=== PATIENT | male | born 1965 | race Caucasian/White ===

== ENCOUNTER 2018-02-01 19:18 | Emergency (ER) | payer OTHER ==
[~2018-02-01] VITALS: Ht 182.9 cm; Wt 74.8 kg
[~2018-02-01 19:18] MED LIST: ACETAMINOPHEN-1 EAC1 PO; ALBUTEROL INH INH; FLEXERIL PO; HYDROCODON-ACE1 EAC7 PO; HYDROCODON-ACE1 EAC8 PO; HYDROCODONE-AP1 EAC6 PO; IBUPROFEN 800800 MG PO; LISINOPRIL20 MG PO; MOBIC7.5 M1 PO; NOHOMEMEDICATIONS; NORCO 5-325 TA1 EACH PO; PANTOPRAZOLE SO40 M1 PO; PENICILLIN VK500 MG PO; PREDNISONE 20 M20 M1 PO; PREDNISONE 20 M20 MG PO; PREDNISONE50 MG PO; ROBAXIN500 MG PO; TORADOL 10 MG T10 MG PO; TRAMADOL 50 MG50 MG PO; ULTRAM 50MG TAB50 MG PO; VISTARIL 25 MG25 M1 PO; XANAX1 MG PO
[2018-02-01 19:24] VITALS: BP 139/73
[2018-02-01] MEDS ORDERED: NORCO 5-325 TA1 EACH PO (20:18)
== END 2018-02-01 20:30 | disposition home or self-care (01) ==
LOC: M.ERS 19:18
DX: S20.211A Contusion of right front wall of thorax, initial encounter (principal); I10 Essential (primary) hypertension; J45.909 Unspecified asthma, uncomplicated; Z88.6 Allergy status to analgesic agent; V49.49XA Driver injured in collision with other motor vehicles in traffic accident, initial encounter; Y93.89 Activity, other specified; Y92.89 Other specified places as the place of occurrence of the external cause; Y99.8 Other external cause status

== ENCOUNTER 2018-06-18 18:40 | Inpatient (IN) | payer OTHER ==
[~2018-06-18] VITALS: Ht 182.9 cm; Wt 70.3 kg
[2018-06-18 18:46] VITALS: BP 101/50
[2018-06-18 19:17] LABS: ABSOLUTE LYMPHOCYTES 1.6 thou/uL (0.8-5.3); ABSOLUTE MONOCYTES 0.7 thou/uL (0.0-1.2); ABSOLUTE NEUTROPHILS 4.2 thou/uL (1.6-8.1); BASOPHILS 0.5 %; EOSINOPHILS 0.7 %; HEMATOCRIT 44.4 % (42.0-52.0); HEMOGLOBIN 14.8 gm/dL (14.0-18.0); MCH 29.2 pg (26.0-34.0); MCHC 33.3 g/dL (28.0-37.0); MCV 87.9 fL (80.0-100.0); MPV 8.5 fl. (7.2-11.1); NUCLEATED RBCS 0 /100WBC; PLATELET COUNT* 278 thou/uL (150-400); POLYS 63.8 %; RBC 5.06 mil/uL (4.50-6.00); RDW-CV 13.1 % (10.5-14.5); WBC 6.6 thou/uL (4.0-11.0)
[2018-06-18 19:24] LABS: CALCIUM 7.9 mg/dL (8.5-10.1); CREATININE 3.1 mg/dL (0.6-1.3); POTASSIUM 3.7 mmol/L (3.5-5.1)
[2018-06-18 19:29] LABS: ALBUMIN 3.4 g/dL (3.4-5.0); TOTAL BILIRUBIN 0.5 mg/dL (<0.1-1.0); TOTAL PROTEIN 6.5 g/dL (6.4-8.2)
[2018-06-18 20:34] VITALS: BP 106/67
[2018-06-18 20:55] VITALS: BP 103/70
[2018-06-18] MEDS ORDERED: LISINOPRIL20 MG PO (21:06)
[2018-06-18] MEDS ORDERED: ZOCOR20 MG PO (21:07)
[2018-06-19] VITALS (7 sets, daily range): BP systolic 90–110; BP diastolic 38–64
[2018-06-19 04:43] LABS: HEMATOCRIT 37.9 % (42.0-52.0); MCH 29.4 pg (26.0-34.0); MCHC 33.5 g/dL (28.0-37.0); MCV 87.8 fL (80.0-100.0); MPV 8.5 fl. (7.2-11.1); RBC 4.32 mil/uL (4.50-6.00); RDW-CV 13.1 % (10.5-14.5)
[2018-06-19 04:57] LABS: ALBUMIN 2.7 g/dL (3.4-5.0); CALCIUM 7.2 mg/dL (8.5-10.1); CREATININE 2.3 mg/dL (0.6-1.3); MAGNESIUM 2.5 mg/dL (1.8-2.4); POTASSIUM 3.8 mmol/L (3.5-5.1); TOTAL BILIRUBIN 0.2 mg/dL (<0.1-1.0); TOTAL PROTEIN 5.2 g/dL (6.4-8.2)
[2018-06-19 05:08] LABS: HEMOGLOBIN 12.7 gm/dL (14.0-18.0)
[2018-06-19 07:31] LABS: URINE BILIRUBIN NEGATIVE (Negative); URINE BLOOD NEGATIVE (Negative); URINE CLARITY CLEAR; URINE COLOR YELLOW; URINE GLUCOSE-RANDOM NEGATIVE (Negative); URINE KETONES NEGATIVE (Negative); URINE LEUKOCYTES-REFLEX NEGATIVE (Negative); URINE NITRITE-REFLEX NEGATIVE (Negative); URINE PROTEIN NEGATIVE (Negative); URINE UROBILINOGEN 0.2 E.U./dl (0.2-1.0)
[2018-06-19 07:48] LABS: AMP/METHAMP POSITIVE (Negative); BARBITURATES Negative (Negative); BENZODIAZEPINES POSITIVE (Negative); COCAINE Negative (Negative); METHADONE Negative (Negative); OPIATES POSITIVE (Negative); PCP Negative (Negative); THC Negative (Negative)
--- NOTE | 2018-06-19 08:18 | NUR ---
RECIEVED REPORT. ASSUMED CARE OF PT AT 0730. VSS. CARDIAC MONTIORING IN PLACE SR. AM ASSESSMENT AND VITALS COMPLETED CHARTED. PT IS SLEEPING THIS AM BUT IS ALERT AND ORIENTED. PT ON RA. IVF INFUSING PER ORDERS. PT DENIES ANY COMPLAINTS OF PAIN OR DISCOMFORT THIS AM. PT'S IV SECURED WITH TAPE THIS AM. PT HAVING RENAL US TODAY. PT'S UDS NOTED. PT INFORMED OF PLAN OF CARE. PT COMMUNICATES UNDERSTANDING. CALL LIGHT IS WITHIN REACH. WILL CONTINUE TO MONITOR FOR DURATION OF SHIFT.
--- NOTE | 2018-06-19 10:49 | NUR ---
PT NOTED TO BEIN AFIB. CONFIRMED WITH EKG. NOTIFIED DR. ROBERTS RECIEVED ORDERS FOR CARDIZEM GTT AND CARDIOLOGY CONSULT
--- NOTE | 2018-06-19 12:31 | EKG ---
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 : 1965 Requested By: Jamey Martinez Order Number: [id number] MD: Jhonatan Ireland Measurements Intervals [place] Rate: 83 P: 78 MD: 136 QRS: 45 QRSD: 101 T: 46 QT: 376 QTc: 442 Interpretive Statements Sinus rhythm Abnormal R-wave progression, early transition Compared to ECG 05/31/2016 23:25:29 early transition noted Electronically Signed On 06-19-2018 12:30:46 CDT by Jhonatan Ireland [email or web address] <ELECTRONICALLY SIGNED> By: Jhonatan Ireland MD, [facility] 06/19/18 1230 18 18 Jhonatan Ireland MD, [facility] /EPI
--- NOTE | 2018-06-19 12:41 | EKG ---
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
--- NOTE | 2018-06-19 13:23 | NUR ---
PT CONVERTED TO SR. DR. ISIDRO NOTIFIED.
--- NOTE | 2018-06-19 17:34 | NUR ---
PT PROGRESSING TOWARDS GOALS. CARDIAC MONITORING IN PLACE SR. VSS. PT REMAINS ALERT AND ORIETNED. PT REAMISN ON RA. IV SALINE LOCKED. PT'S PAIN WELL MANAGED WITH PO PAIN MEDS. PT IS UP AD RAMAN IN ROOM. PT INFORMED OF PLAN OF CARE. CALL LIGHT IS WITHIN REACH. WILL CONTINUE TO MONITOR FOR DURATION OF SHFIT.
--- NOTE | 2018-06-20 00:56 | NUR ---
ASSUMED PT CARE REPORT RECEIVED FROM NURSE. PT IS ALERT AWAKE ORIENTED X4, SINUS RYTHM ON DEVELOPER ARCHITECT. COMPLAIN OF PAIN LEVEL 7 IN BACK. PAIN MED WAS ADMINISTERED SCHEDULED. PT TOLORATED WELL. HE IS NOW SLEEPING IN BED. VTAL SIGNS WITHIN NORMAL LIMIT. WILL CONTINUE TO MONITOR.
[2018-06-20 04:00] VITALS: BP 113/63
[2018-06-20 05:06] LABS: HEMATOCRIT 38.8 % (42.0-52.0); HEMOGLOBIN 12.9 gm/dL (14.0-18.0); MCH 29.2 pg (26.0-34.0); MCHC 33.3 g/dL (28.0-37.0); MCV 87.8 fL (80.0-100.0); MPV 8.7 fl. (7.2-11.1); RBC 4.42 mil/uL (4.50-6.00); WBC 5.9 thou/uL (4.0-11.0)
[2018-06-20 05:35] LABS: ALBUMIN 2.7 g/dL (3.4-5.0); CALCIUM 8.4 mg/dL (8.5-10.1); CREATININE 1.5 mg/dL (0.6-1.3); MAGNESIUM 2.1 mg/dL (1.8-2.4); PHOSPHORUS* 1.6 mg/dL (2.5-4.9); POTASSIUM 4.4 mmol/L (3.5-5.1)
[2018-06-20 08:00] VITALS: BP 118/73
--- NOTE | 2018-06-20 09:49 | NUR ---
ASSUMED CARE OF PT AT 0730. PT RESTING IN BED WAITING FOR BREAKFAST. PT A&0X4, COMPLAINS OF PAIN TO LOWER BACK. TREATED WITH PRN PAIN MEDICATION WITH PARTIAL RELIEF. 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 ON RHYTHMOL FOR HISTORY AFIB. PT ON RA SAT UPPER 90'S. DENIES ANY SHORTNESS OF BREATH. PT UP AD RAMAN IN ROOM. PT GOAL FOR TODAY IS PAIN MGMT, MONITOR HEART RATE AND RHYTHM, INCREASE ACTIVITY AND DISCHARGE PLANNING. AM ASSESSMENT CHARTED. MEDICATIONS PER JAN. PT REPOSITIONS SELF. HOURLY ROUNDING OBSERVED. BED IN LOW POSITION. CALL LIGHT WITHIN REACH. WILL CONTINUE PLAN OF CARE.
[2018-06-20 11:06] VITALS: BP 118/73
[2018-06-20] MEDS ORDERED: RYTHMOL SR225 MG PO (11:13)
[2018-06-20] MEDS ORDERED: ASPIRIN325 PO (12:11)
[2018-06-20 13:03] VITALS: BP 120/69
--- NOTE | 2018-06-20 15:18 | 2DMMODE ---
[place] [address] 2 D/M-MODE ECHOCARDIOGRAM Name: NICOLA BRIONES Room: [address] IN .R.#: [id number] Admission: 06/18/18 Attend Phys: Edi Moreno Discharge: Date of : 69 Date of Service: 06/20/18 1518 Report #: [id number] THIS REPORT FOR: //name// APPROVED REPORT Study performed: 06/20/2018 13:16:22 EXAM: Comprehensive 2D, Doppler, and color-flow Echocardiogram Patient Location: Bedside BSA: 1.91 HR: 76 bpm BP: 114/64 mmHg Other Information Study Quality: Fair Indications Atrial Fibrillation 2D Dimensions LVEF(%): 57.24 (>50%) IVSd: 9.22 (7-11mm) LVOT Diam: 20.52 (18-24mm) LVDd: 44.94 mm PWd: 8.77 (7-11mm) Ascending Ao: 32.51 (22-36mm) LVDs: 31.50 (25-40mm) Aortic Root: 25.41 mm Dumont's LVEF: 57.24 % Volumes Left Atrial Volume (Systole) LA ESV Index: 25.00 mL/m2 Aortic Valve AoV Peak Sumeet.: 1.21 m/s AO Peak Gr.: 5.88 mmHg LVOT Max P.81 mmHg AO Mean Gr.: 3.41 mmHg LVOT Mean P.02 mmHg LVOT Max V: 0.98 m/s AO V2 VTI: 20.61 cm LVOT Mean V: 0.66 m/s MARY (VTI): 3.01 cm2 LVOT V1 VTI: 18.78 cm Mitral Valve E/A Ratio: 1.24 MV Decel. Time: 153.32 ms MV E Max Sumeet.: 0.77 m/[place] [address] 2 D/M-MODE ECHOCARDIOGRAM Name: NICOLA BRIONES Room: [address] IN [facility]#: [id number] Admission: 06/18/18 Attend Phys: Edi Moreno Discharge: Date of : 69 Date of Service: 06/20/18 1518 Report #: [id number] MV PHT: 44.46 ms MVA (PHT): 4.95 cm2 TDI E/Lateral E': 4.53 E/Medial E': 5.50 Medial E' Sumeet.: 0.14 m/s Lateral E' Sumeet.: 0.17 m/s Pulmonary Valve PV Peak Sumeet.: 1.15 m/s PV Peak Gr.: 5.28 mmHg Left Ventricle The left ventricle is normal size. Paradoxical septal motion. There is normal left ventricular wall thickness. Left ventricular systolic function is borderline. A false tendon is noted. LVEF is 50-55%. The left ventricular diastolic function is normal. Right Ventricle The right ventricle is normal size. The right ventricular systolic function is normal. Atria The left atrium size is normal. The right atrium size is normal. Aortic Valve The aortic valve is normal in structure. No aortic regurgitation is present. There is no aortic valvular stenosis. Mitral Valve The mitral valve is normal in structure. There is no mitral valve regurgitation noted. No evidence of mitral valve stenosis. Tricuspid Valve The tricuspid valve is normal in structure. There is no tricuspid valve regurgitation noted. Pulmonic Valve Pulmonic valve is not well visualized. There is no pulmonic valvular regurgitation. Great Vessels The aortic root is normal in size. IVC is not well visualized[place] [address] 2 D/M-MODE ECHOCARDIOGRAM Name: NICOLA BRIONES Room: [address] IN [facility]#: [id number] Admission: 06/18/18 Attend Phys: Edi Moreno Discharge: Date of : 69 Date of Service: 06/20/18 1518 Report #: [id number] There is no pericardial effusion. <Conclusion> LVEF is 50-55%. <ELECTRONICALLY SIGNED> By: Jhonatan Ireland MD, FACC 06/20/18 1518 1518 1518 Jhonatan Ireland MD, [facility] /INF
--- NOTE | 2018-06-20 15:25 | EKG ---
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1965 Requested By: Jhonatan Ireland Order Number: [id number] Rossy MD: Jhonatan Ireland Measurements Intervals [place] Rate: 84 P: 66 [place]: 139 QRS: 52 QRSD: 93 T: 57 QT: 367 QTc: 434 Interpretive Statements Sinus rhythm Left ventricular hypertrophy Compared to ECG 06/19/2018 10:31:16 Atrial fibrillation no longer present Electronically Signed On 06-20-2018 15:25:07 CDT by Jhonatan Ireland [email or web address] <ELECTRONICALLY SIGNED> By: Jhonatan Ireland MD, [facility] 06/20/18 1525 1331 30 Jhonatan Ireland MD, FACC /EPI
--- NOTE | 2018-06-20 15:27 | EKG ---
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
--- NOTE | 2018-06-20 15:47 | NUR ---
PT HAD ECHO TODAY. REFER TO RESULTS. DISCHARGE ORDERS RECEIVED. DISCHARGE INSTRUCTIONS, CARE NOTES, SCRIPTS AND FOLLOW UP APPTS GIVEN TO PT. PT COMMUNICATES UNDERSTANDING OF DISCHARGE TEACHING. IV AND RISK OFFICER REMOVED. PT DISCHARGED WITH ALL BELONGINGS AND PAPERWORK VIA WHEELCHAIR WITH NURSING STAFF TO PT MOTHER'S VEHICLE.
--- NOTE | 2018-06-21 11:15 | CON ---
[address] [address] CONSULTATION Name: NICOLA BRIONES Room: [address] IN .R.#: [id number] Admission: 06/18/18 Attend Phys: Edi Valentin, Discharge: 06/20/18 Date of : 69 Report #: [id number] THIS REPORT FOR: //name// CC: Dr. Brush [facility] physician/PCP Edi Valentin DATE OF SERVICE: 06/19/2018 HISTORY OF PRESENT ILLNESS: The patient is a 53-year-old single white male who I was asked to see in the hospital today after he was noted to be in atrial fibrillation. The history is obtained from the patient and some old records. The patient has a history of polycystic kidney disease. He has had multiple visits to the Emergency Room here at [place]. He was actually here at [place] in May 2016 with chest pain, felt to be secondary to gastroesophageal reflux. He has actually had several stress tests in the past. He underwent a nuclear stress test back in 2015 that showed no evidence of ischemia with an ejection fraction of 60%. The patient has not been hospitalized since that time. Recently, the patient has felt lightheaded. He has had dizzy spells and has to sit down. Yesterday, he was at home, felt lightheaded and actually apparently briefly fell to the ground. He did not hurt himself. His mother brought him to the hospital. He was found to be in atrial fibrillation. He was admitted for further evaluation and treatment. He denies any seizure activity. He has had no vomiting, diarrhea or blood in stool. He does have occasional sharp chest pain that is not related to exertion. He does become short of breath if he overexerts himself, but has had no edema. He has occasional episodes where his heart will pound. PAST MEDICAL HISTORY: He has had previous shoulder surgery. He has a history of hypertension, hyperlipidemia. He has chronic pain from his polycystic kidney disease. MEDICATIONS: Consists of lisinopril, simvastatin, hydrocodone. ALLERGIES: He has no known drug allergies. FAMILY HISTORY: His brother was on dialysis and subsequently . 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 No alcohol abuse. REVIEW OF SYSTEMS: He has no history of stroke. He did have asthma. No history of peptic ulcer disease, liver disease, cancer, psychiatric illness. PHYSICAL EXAMINATION: GENERAL: Revealed a middle-aged male lying in bed, [place] [address] CONSULTATION Name: NICOLA BRIONES Room: [address]#: [id number] Admission: 06/18/18 Attend Phys: Edi Valentin, Discharge: 06/20/18 Date of : 69 Report #: [id number] distress. VITAL SIGNS: He had a blood pressure of 110/60, pulse 60. He is afebrile. HEENT: He was anicteric. Conjunctivae pink. Mucous membranes moist. NECK: Veins nondistended. Neck was supple. CHEST: Clear to auscultation. CARDIOVASCULAR: Irregular rhythm. No significant murmur. ABDOMEN: Soft. EXTREMITIES: Had no edema. Posterior tibial pulse was 2+ bilaterally. SKIN: Warm, moist. NEUROLOGIC: Nonfocal. LYMPHATIC: No adenopathy. MUSCULOSKELETAL: No joint effusion. RADIOLOGICAL DATA: ECG shows initially when he presented to the emergency room last night, he was in sinus rhythm; however, this morning, he developed atrial fibrillation with an increased ventricular response rate. His workup since he came to the emergency room last night, he had a CT scan of the head without contrast that showed no acute abnormality. He had a chest x-ray last night that showed no acute abnormality. LABORATORY DATA: Sodium 141, BUN 40, creatinine 2.3, which has increased from 1.4 two years ago. His glucose was 153, white blood cell count was 6.0, hemoglobin 12.7. IMPRESSION AND RECOMMENDATIONS: 1. Atrial fibrillation. I would recommend checking thyroid function studies and echocardiogram. I would recommend starting sotalol. The patient has a BRYON score of 1, so I would consider anticoagulation. If the patient fails to convert, I would consider cardioversion. 2. Polycystic kidney disease. 3. Chronic kidney disease. 4. Hypertension. The patient is on BIBI inhibitor. 5. Hyperlipidemia. 6. Use of smokeless tobacco. 7. History of asthma. <ELECTRONICALLY SIGNED> By: Jhonatan Ireland MD, [facility] 06/21/18 1115 1129 2210Davijordana Ireland MD, FAC /nt
--- NOTE | 2018-07-04 15:14 | CON ---
[address] [address] CONSULTATION Name: NICOLA BRIONES Room: [address] IN [facility].#: [id number] Admission: 06/18/18 Attend Phys: Edi Valentin, Discharge: 06/20/18 Date of : 69 Report #: [id number] THIS REPORT FOR: //name// CC: [facility] physician/PCP Edi Valentin TYPE OF REPORT: Nephrology consultation. CONSULTING PHYSICIAN: Edi Valentin M.D. REASON FOR CONSULTATION: Acute kidney injury. HISTORY OF PRESENT ILLNESS: A 53-year-old gentleman with a history of polycystic kidney disease, admitted with a near-syncopal episode. He has been working on the hot climate this week and has some relatively low blood pressures on admission. Denies any nausea, vomiting or diarrhea. Denies any NSAID use. He is feeling better now and has no significant complaints. REVIEW OF SYSTEMS: Constitutional, psych, heme, eyes, ENT, respiratory, cardiac, GI, , endocrine, all negative except as documented above. PAST MEDICAL HISTORY: Polycystic kidney disease, hypertension and asthma. SOCIAL HISTORY: Positive for tobacco. FAMILY HISTORY: Father, he believes to have polycystic kidney disease. PHYSICAL EXAMINATION: VITAL SIGNS: Blood pressure 97/57, pulse 105, respirations 16 and temperature 36.4. GENERAL: No acute distress. EYES: Extraocular movements intact. EARS: Externally normal. CARDIOVASCULAR: Regular rate. LUNGS: No crackles. ABDOMEN: Soft. LYMPHATICS: No peripheral pitting edema. PSYCHIATRIC: Awake and alert. LABORATORY DATA: White cell count 6, hemoglobin 12.7 and platelets 208. Sodium 141, potassium 3.8, chloride 111, bicarbonate 23, BUN 40, creatinine 2.3, glucose 153, calcium 7.2 and magnesium 2.5. ASSESSMENT AND PLAN: 1. Acute kidney injury with admission creatinine of 3.1, down to 2.3 on June 19 in the setting of relatively low blood pressures and volume depletion. Ultrasound is consistent with polycystic kidney disease. [place] [address] CONSULTATION Name: NICOLA BRIONES Room: [address]#: [id number] Admission: 06/18/18 Attend Phys: Edi Valentin, Discharge: 06/20/18 Date of : 69 Report #: [id number] lisinopril. UA is normal in 2016. Creatinine was 1.3. He mentions that he follows with a kidney doctor as an outpatient in [place] but does not recall the name. 2. Urine drug screen positive for amphetamine/methamphetamine. CK was okay. 3. Polycystic kidney disease. Ultrasound shows kidneys of 15.3 and 13.9 cm in size. 4. Chronic kidney disease, probably stage 3. 5. Hypertension. PLAN: Continue hydration. He will need outpatient followup for his polycystic kidney disease. He has a kidney doctor as an outpatient but is thinking about switching and asked for my contact information, which I provided. Labs will be checked again in the a.m. Thank you for requesting my opinion in the care and management of this patient. <ELECTRONICALLY SIGNED> By: Orin Galindo MD 07/04/18 1514 1214 0012Akarina Galindo MD /nt
== END 2018-06-20 15:50 | disposition home or self-care (01) | DRG 683 ==
LOC: M.ERS 18:40 → M.TBA-ER 19:59 → M.2W 19:59
PROVIDERS: Physician Assistant; ADMIT Family Medicine
DX: N17.9 Acute kidney failure, unspecified (principal); Q61.3 Polycystic kidney, unspecified; M62.82 Rhabdomyolysis; I48.91 Unspecified atrial fibrillation; F17.220 Nicotine dependence, chewing tobacco, uncomplicated; I12.9 Hypertensive chronic kidney disease with stage 1 through stage 4 chronic kidney disease, or unspecified chronic kidney disease; N18.3 Chronic kidney disease, stage 3 (moderate); E78.5 Hyperlipidemia, unspecified; G89.29 Other chronic pain; E86.0 Dehydration; J45.909 Unspecified asthma, uncomplicated; F15.10 Other stimulant abuse, uncomplicated; W18.39XA Other fall on same level, initial encounter; T67.5XXA Heat exhaustion, unspecified, initial encounter; X58.XXXA Exposure to other specified factors, initial encounter; Y93.89 Activity, other specified; Y99.8 Other external cause status; Z88.6 Allergy status to analgesic agent; Y92.090 Kitchen in other non-institutional residence as the place of occurrence of the external cause; Z79.01 Long term (current) use of anticoagulants; Z79.82 Long term (current) use of aspirin; Z79.899 Other long term (current) drug therapy; Z84.1 Family history of disorders of kidney and ureter